=== PATIENT | male | born 1960 | race Caucasian/White ===

== ENCOUNTER 2022-04-09 09:00 | Emergency (ER) | payer OTHER, SELFPAY ==
--- NOTE | ~2022-04-09 | CT_ITS ---
EXAMINATION: CT brain wo con DATE: 04/09/2022 10:16 INDICATION: Confusion TECHNIQUE: Computed tomography (CT) of the head was performed without intravenous contrast. The mA wa s adjusted according to patient size. Iterative reconstruction technique was employed. Exam dose: 60 5.33 mGy-cm total exam DLP. COMPARISON: None FINDINGS: No intracranial mass lesion or hemorrhage or cerebrovascular accident is detected. No midli ne shifts or mass effect. No subdural or epidural hematoma. No fracture or bone destruction of the cranial vault. The mastoid air cells and included paranasal si nuses are normally developed and aerated. IMPRESSION: No significant abnormality Reviewed, dictated and finalized at [facility]. Reviewed, dictated and finalized at location [facility]. IMPRESSION: No significant abnormality
[2022-04-09 09:09] VITALS: BP 136/96; PULSE 77; RESP 20; TEMP 36.4; O2SAT 99
--- NOTE | 2022-04-09 09:23 | ED.PSYCH ---
HPI - Psych General Chief Complaint: Psychiatric Symptoms Stated Complaint: Suicidal ideation Time Seen by Provider: 04/09/22 09:08 Source: patient Mode of arrival: ambulatory Limitations: no limitations History of Present Illness HPI Narrative: Patient is a 62 y/o male who presents to the ED with c/o suicidal ideation. Patient reports a history of depression, anxiety, bipolar disorder, in addition to seizures, CVA, hypertension. Patient recently moved back into the area from [facility] and is currently living with his brother and [id number]. [id number] present at bedside. Patient reports he does not have any insurance or doctors here and has been unable to fill his prescriptions. He has reportedly been out of his psychiatric medications for the last 10 days. He states he recently broke up with his girlfriend and has been feeling increasingly hopeless and depressed. He states he can't go on like this and just wants to kill himself to make things end. He does not report a specific plan. Denies HI, AVH. Related Data Home Medications Medication Instructions Recorded Confirmed amlodipine 5 mg tablet 5 mg PO DAILY 04/09/22 apixaban 5 mg tablet (Eliquis) 5 mg PO BID 04/09/22 carvedilol 6.25 mg tablet (Coreg) 6.25 mg PO DAILY 04/09/22 04/09/22 divalproex 250 mg tablet,delayed 750 mg PO Q12H 04/09/22 release levetiracetam 1,000 mg tablet 1,000 mg PO BID 04/09/22 (Keppra) quetiapine 100 mg tablet 100 mg PO HS 04/09/22 Allergies Allergy/AdvReac Type Severity Reaction Status Date / Time Sulfa (Sulfonamide AdvReac Rash Verified 04/09/22 09:40 Antibiotics) Review of Systems Review of Systems: CONSTITUTIONAL: Denies fever. CARDIOVASCULAR: Denies chest pain. RESPIRATORY: Denies dyspnea. GASTROINTESTINAL: Denies abdominal pain, nausea, vomiting. NEUROLOGIC: Denies focal weakness. PSYCHIATRIC: Reports anxiety, depression, SI. Denies HI, AVH. All systems reviewed & are unremarkable except as noted in HPI and below PMFSH Past Medical History Medical History (Updated 04/10/22 @ 00:00 by Background Daemon) Anxiety Bipolar disorder CVA (cerebral vascular accident) Depression History of intestinal obstruction HTN (hypertension) Seizure Surgical History Surgical History (Updated 04/09/22 @ 19:58 by Nereida Morgan PA-C) History of exploratory laparotomy History of gastric bypass Social History Social History Substance use type: does not use Exam Narrative: GENERAL: Well appearing, well-nourished, non-toxic, in no acute distress. HEAD: Normocephalic, atraumatic. NECK: Supple. No adenopathy, no masses. RESPIRATORY: Airway patent, respirations nonlabored. Clear to auscultation bilaterally, no rales, rhonchi, wheezing. CARDIOVASCULAR: Regular rate and rhythm without murmurs, rubs, or gallops. Peripheral pulses 2+ and equal bilaterally. ABDOMINAL: Soft, nontender, nondistended, no hepatosplenomegaly. Normoactive BS. MUSCULOSKELETAL: Moves all extremities. Strength/ROM intact without gross deformities. SKIN: Warm, dry, normal color. No rashes. NEURO: A&O X3. Occasional dysarthria, which patient reports is chronic from previous stroke. Cranial nerves II-XII grossly intact. Steady gait. No ataxic movements. Strength 5/5 in upper and lower extremities bilaterally. Sports Writer strength equal. PSYCHIATRIC: Depressed mood, anxious, tearful. Normal interaction. Course Course Emergency Course: Patient is medically cleared to undergo psychiatric evaluation by crisis. Vital Signs Vital signs: Vital Signs Temperature 97.5 F L 04/09/22 09:09 Pulse Rate 77 04/09/22 09:09 Respiratory Rate 20 04/09/22 09:09 Blood Pressure 136/96 H 04/09/22 09:09 Pulse Oximetry 99 04/09/22 09:09 Oxygen Delivery Room Air 04/09/22 09:09 Temperature 97.5 F L 04/09/22 09:09 Pulse Rate 88 04/09/22 19:31 Respiratory Rate 16 04/09/22 19:31 Blood Pressure
--- NOTE | 2022-04-09 09:44 | PC.NURSE ---
Pt reports he has been out of his meds for greater than a week and has tried to get in touch with a pmd for refills since moving back from [place] but has been unable to reach anyone. Hx of psych treatment in 2019 at facility in [place]. Denies previous suicide attempts. States I just wish God would take me in my sleep. Denies suicide plan at present. Sister in law at bedside.
[2022-04-09 10:23] LABS: Appearance Urine Cloudy (Clear); Basophils Absolute Auto 0.1 K/mm3 (0.0-0.1); Bilirubin Urine 2+ (Negative); Blood Urine 3+ (Negative); Eosinophils Absolute Auto 0.3 K/mm3 (0-0.3); Eosinophils Percent Auto 5.8 % (0-4.4); Glucose Urine UA Negative (Negative); Immature Granulocyte Absolute 0.01 K/mm3 (0.00-0.031); Immature Granulocyte Percent A 0.2 % (0-0.5); Immature Platelet Fraction Pct 10.9 % (0.9-11.2); Ketones Urine 1+ mg/dL (Negative); Leukocyte Esterase Ur Negative LEU/UL (Negative); Lymphocytes Absolute Auto 1.73 K/mm3 (0.9-3.2); Lymphocytes Percent Auto 33.5 % (18.3-44.2); Mean Corpuscular HGB Conc 34.1 g/dl (32-36); Mean Corpuscular Hemoglobin 32.6 pg (26-34); Mean Corpuscular Volume 95.7 fl (80-100); Mean Platelet Volume 10.9 fl (7.4-10.4); Monocytes Absolute Auto 0.5 K/mm3 (0.1-0.6); Monocytes Percent Auto 9.9 % (2.6-8.5); Neutrophils Absolute Auto 2.6 K/mm3 (1.3-6.7); Neutrophils Percent Auto 49.6 % (45.5-73.1); Nitrate Urine Negative (Negative); Platelet Count Result 120 k/mm3 (150-375); Protein Urine 2+ mg/dL (Negative); Red Cell Distribution Width 14.8 % (11.5-14.5); Specific Grav Ur 1.025 (1.001-1.035); White Blood Count 5.2 K/mm3 (4.5-10.0)
[2022-04-09 10:28] LABS: Add Urine Microscopic? YES; Color Urine Dark Yellow (Yellow)
[2022-04-09 10:30] LABS: Calcium Oxalate Crystals Urine Present /hpf; Mucus Urine Moderate /lpf; RBC Urine >75 /hpf (0-2); Squamous Epithelial Cell Urine Rare /hpf (Few); WBC Urine 16-20 /hpf
[2022-04-09 10:35] LABS: INR 1.1; Prothrombin Time 13.3 Seconds (11.1-14.7)
[2022-04-09 10:36] LABS: Partial Thromboplastin Time 32.7 SECONDS (22.3-36.8)
[2022-04-09 10:40] LABS: Alanine Aminotransferase 28 U/L (6-50); Albumin Level 3.6 g/dL (3.5-5.1); Alkaline Phosphatase 76 U/L (38-126); Anion Gap 9 mmol/L (8-16); Aspartate Amino Transferase 32 U/L (17-59); Bilirubin,Total 0.7 mg/dL (0.2-1.3); Blood Urea Nitrogen 17 mg/dL (9-20); Calcium 8.3 mg/dL (8.4-10.2); Carbon Dioxide 24 mmol/L (22-30); Chloride 106 mmol/L (98-107); Estimated CRCL calculation 110 ml/min; Estimated Glomerular Filt Rate > 60; Glucose 128 mg/dL (65-110); Sodium 139 mmol/L (137-145)
[2022-04-09 10:41] LABS: Acetaminophen < 10 ug/mL (10-30); Ethanol < 10 mg/dL (<10); Salicylate < 1.0 mg/dL (2-20)
[2022-04-09 10:44] LABS: Valproic Acid 34.4 ug/mL (50-120)
[2022-04-09 11:02] LABS: SARS-CoV-2 RNA PCR Negative
[2022-04-09] MEDS: CEPHALEXIN 500 MG CAPSULE PO (11:02)
[2022-04-09] MEDS: POTASSIUM CHLORIDE 20 MEQ TABLET 40 MEQ PO (11:02)
[2022-04-09 11:11] LABS: Amphetamine Screen Urine Negative (Negative); Barbiturate Screen Urine Negative (Negative); Benzodiazepines Screen Urine Negative (Negative); Cannabinoid Screen Urine Negative (Negative); Cocaine Screen Urine Negative (Negative); Methadone Screen Urine Negative (Negative); Opiate Screen Urine Negative (Negative); Phencyclidine Screen Urine Negative (Negative)
--- NOTE | 2022-04-09 17:39 | PC.NURSE ---
MARTELL SANON [phone]
--- NOTE | 2022-04-09 19:20 | PC.NURSE ---
PT REQUESTING LOW SUGAR ENSURE, ASKING HOUSE SUP FOR ASSISTANCE.
[2022-04-09 19:31] VITALS: BP 142/80; PULSE 88; RESP 16; O2SAT 98
== END 2022-04-09 19:40 ==
PROVIDERS: Physician Assistant; Emergency Provider Emergency Medicine
DX: R45.851 Suicidal ideations (principal); F31.9 Bipolar disorder, unspecified; I10 Essential (primary) hypertension; F41.9 Anxiety disorder, unspecified; Z98.84 Bariatric surgery status; Z86.73 Personal history of transient ischemic attack (TIA), and cerebral infarction without residual deficits
CPT/HCPCS: 36415; 70450; 80053; 80164; 80307; 81001; 84443; 85025; 85055; 85610; 85730; 87086; 87088; 99285; A9270; C9803; U0003; U0005

== ENCOUNTER 2022-06-03 13:36 | Inpatient (IN) | payer OTHER, SELFPAY ==
[2022-06-03] VITALS (10 sets, daily range): BP systolic 88–125; BP diastolic 57–100; PULSE 51–67; RESP 16–20; TEMP 35.9–36.6; O2SAT 96–100; BMI 33.3
--- NOTE | ~2022-06-03 | US_ITS ---
EXAMINATION: US carotid duplex BI DATE: 06/04/2022 09:13 INDICATION: Near syncope. TECHNIQUE: Grayscale, color Doppler, and pulsed Doppler images of the cervical carotid arteries were obtained. The degree of vessel stenosis is placed in one of the following categories: normal, <50%, 5 0-69%, >=70% but less than near-occlusion, near-occlusion, or total occlusion. Note that percent sten osis relative to normal distal artery lumen diameter is indirectly measured from velocity measurement s as described by Eben, et al. Radiology 2003; 229:340-346. COMPARISON: None. FINDINGS: RIGHT: The right common carotid artery (CCA) peak systolic velocity (PSV) is 66 cm/s. The right internal car otid artery (ICA) PSV is 80 cm/s. The right ICA end-diastolic velocity (EDV) is 30 cm/s. The right IC A/CCA PSV ratio is 1.2. Grayscale and color Doppler images yield an estimate of <50% diameter reducti on from plaque in the ICA. There is antegrade flow in the right vertebral artery. LEFT: The left CCA PSV is 81 cm/s. The left ICA PSV is 87 cm/s. The left ICA EDV is 32 cm/s. The left ICA/C CA PSV ratio is 1.1. Grayscale and color Doppler images yield an estimate of <50% diameter reduction from plaque in the ICA. There is antegrade flow in the left vertebral artery. IMPRESSION: 1. <50% stenosis in the right internal carotid artery. 2. <50% stenosis in the left internal carotid artery. Reviewed, dictated and finalized at location [facility].
--- NOTE | ~2022-06-03 | CT_ITS ---
EXAMINATION: CT brain wo con DATE: 06/03/2022 15:47 INDICATION: Dizziness. TECHNIQUE: Computed tomography (CT) of the head was performed without intravenous contrast. The mA wa s adjusted according to patient size. Iterative reconstruction technique was employed. The dose-lengt h product was 605.33 mGy-cm. COMPARISON: Head CT 04/09/2022 FINDINGS: There is an old infarct in right temporal parietal region. There is no intracranial hemorrh age, acute infarction, or abnormal intracranial mass lesion. The ventricles are normal in size. The m astoid air cells are normal. There is mild mucosal thickening in the ethmoid sinuses. The orbits are normal. IMPRESSION: 1. Old infarct in right temporal parietal region. Reviewed, dictated and finalized at location [facility].
--- NOTE | ~2022-06-03 | MR_ITS ---
EXAMINATION: MR brain/brain stem wo/w con DATE: 06/04/2022 07:57 INDICATION: Near syncope. TECHNIQUE: Magnetic resonance imaging (MRI) of the brain and brainstem was performed without and with 20 mL MultiHance intravenous contrast. COMPARISON: Head CT 06/03/2022 FINDINGS: There is encephalomalacia in right temporal parietal region with old blood products and con trast enhancement. There is no acute ischemic infarct. The ventricles are normal in size. There is mi ld mucosal thickening in the ethmoid sinuses. IMPRESSION: 1. Encephalomalacia in right temporal parietal region with old blood products. Contrast enhancement i n this area may be secondary to subacute age of the insult or arteriovenous malformation. Reviewed, dictated and finalized at location A. IMPRESSION: 1. Encephalomalacia in right temporal parietal region with old blood products. Contrast enhancement in this area may be secondary to subacute age of the insul t or arteriovenous malformation.
--- NOTE | ~2022-06-03 | XR_ITS ---
EXAMINATION: XR chest 2V DATE: 06/03/2022 13:49 INDICATION: Dizziness. Stroke. TECHNIQUE: AP and lateral views of the chest were obtained. COMPARISON: None FINDINGS: The lungs are clear with no focal airspace opacities, pulmonary edema, pleural effusion or pneumothor ax. The cardiomediastinal silhouette is normal. There are bridging osteophytes at multiple levels in the spine, consistent with diffuse idiopathic skeletal hyperostosis (DISH). Cholecystectomy clips in right upper quadrant. Partially visualized plate and screw fixation along the proximal left humerus. IMPRESSION: 1. No acute cardiopulmonary disease. Reviewed, dictated and finalized at location A.
--- NOTE | 2022-06-03 13:37 | ECG_ITS ---
Measurements Intervals [place] Rate: 60 P: 53 LA: 191 QRS: 8 QRSD: 94 T: 37 QT: 392 QTc: 393 Interpretive Statements SINUS RHYTHM RSR' IN V1 OR V2, CONSIDER RIGHT VENTRICULAR HYPERTROPHY OR RIGHT VCD BASELINE ARTIFACT- I, II, III, AVR, AVL, AVF, V1-V2 BORDERLINE ECG NO PREVIOUS ECG AVAILABLE FOR COMPARISON Electronically Signed On 06-03-2022 16:42:54 CDT by Sudheer Cid D.O.
--- NOTE | 2022-06-03 13:46 | PC.NURSE ---
Pt is in xray,
[2022-06-03 14:17] LABS: Basophils Absolute Auto 0.1 K/mm3 (0.0-0.1); Eosinophils Absolute Auto 0.3 K/mm3 (0-0.3); Eosinophils Percent Auto 4.9 % (0-4.4); Hematocrit 40.9 % (42.0-52.0); Hemoglobin 13.9 g/dL (14.0-18.0); Immature Granulocyte Absolute 0.02 K/mm3 (0.00-0.031); Immature Granulocyte Percent A 0.4 % (0-0.5); Immature Platelet Fraction Pct 8.9 % (0.9-11.2); Lymphocytes Absolute Auto 2.13 K/mm3 (0.9-3.2); Lymphocytes Percent Auto 41.4 % (18.3-44.2); Mean Corpuscular Hemoglobin 34.6 pg (26-34); Mean Corpuscular Volume 101.7 fl (80-100); Mean Platelet Volume 11.8 fl (7.4-10.4); Monocytes Absolute Auto 0.6 K/mm3 (0.1-0.6); Neutrophils Absolute Auto 2.1 K/mm3 (1.3-6.7); Neutrophils Percent Auto 40.3 % (45.5-73.1); Platelet Count Result 89 k/mm3 (150-375); Red Blood Count 4.02 M/mm3 (4.6-6.20); White Blood Count 5.2 K/mm3 (4.5-10.0)
[2022-06-03 14:26] LABS: Alanine Aminotransferase 53 U/L (6-50); Albumin Level 3.3 g/dL (3.5-5.1); Alkaline Phosphatase 71 U/L (38-126); Anion Gap 9 mmol/L (8-16); Aspartate Amino Transferase 60 U/L (17-59); Blood Urea Nitrogen 25 mg/dL (9-20); Calcium 8.4 mg/dL (8.4-10.2); Carbon Dioxide 26 mmol/L (22-30); Chloride 103 mmol/L (98-107); Estimated Glomerular Filt Rate > 60; Glucose 96 mg/dL (65-110); Potassium 3.6 mmol/L (3.4-5.0); Sodium 138 mmol/L (137-145)
[2022-06-03 14:33] LABS: Ovalocytes 1+ (NORMAL); Platelet Estimate Decreased (Adequate)
[2022-06-03 14:41] LABS: Schistocytes None Seen (NORMAL)
--- NOTE | 2022-06-03 15:14 | ED.GENADULT ---
HPI - General Adult General Chief complaint: Weakness Stated complaint: near syncope, hypotensive/bradycardic Time Seen by Provider: 06/03/22 15:13 Source: patient and EMS Mode of arrival: EMS Limitations: no limitations History of Present Illness HPI narrative: Patient is 62 years old white female came to the emergency room by ambulance because of near syncope and syncope. Patient reports feeling like going to pass out since bale sewer at least 4 times a day. Patient was in a friend in the grocery store and was in a sitting position and suddenly passed out, unresponsive, sweating and clammy, lasted for 1 minute, his eyes was rolled up and was staring. Patient reports having similar symptoms many times in the past, last year without a specific diagnosis. History of stroke 5 months ago. Patient lives alone, disabled, secondary to extreme depression Related Data Home Medications Medication Instructions Recorded Confirmed amlodipine 5 mg tablet 5 mg PO DAILY 04/09/22 apixaban 5 mg tablet (Eliquis) 5 mg PO BID 04/09/22 carvedilol 6.25 mg tablet (Coreg) 6.25 mg PO DAILY 04/09/22 04/09/22 divalproex 250 mg tablet,delayed 750 mg PO Q12H 04/09/22 release levetiracetam 1,000 mg tablet 1,000 mg PO BID 04/09/22 (Keppra) quetiapine 100 mg tablet 100 mg PO HS 04/09/22 Allergies Allergy/AdvReac Type Severity Reaction Status Date / Time Sulfa (Sulfonamide AdvReac Rash Verified 04/09/22 09:40 Antibiotics) Review of Systems Review of Systems: All systems reviewed & are unremarkable except as noted in HPI and below PMFSH Past Medical History Medical History Anxiety Bipolar disorder CVA (cerebral vascular accident) Depression History of intestinal obstruction HTN (hypertension) Seizure Surgical History Surgical History History of exploratory laparotomy History of gastric bypass Social History Social History Substance use type: does not use Exam Narrative: General appearance: Well-developed, well-nourished Skin: Normal color Head: Normocephalic, nontraumatic Eyes: Clear conjunctiva ENT: Oropharynx normal, ears normal, nose normal Neck: Supple, nontender Chest and respiratory: Airway patent, no respiratory distress, no accessory muscle use Heart: Regular rate/rhythm Abdomen: Soft, nontender, no organomegaly, quiet bowel sounds Vascular: Normal peripheral pulses, normal capillary refill. Musculoskeletal: Normal range of motion, nontender back Neurologic: Alert and oriented ?3, GYMNASIUM TEACHER is normal as tested, no gross motor deficit Course Course Emergency Course: Patient work-up did not show any significant finding to explain his symptoms. Seizure is my concern. Patient had history of CVA 5 months ago. Also his symptoms could be cardiac related or extreme depression. Patient reported having similar symptoms numerous of time in the past without specific diagnosis. History of bipolar, anxiety and depression And seizure Consultations Consultation #1: Dr. Wills Date: 06/03/22 Time: 16:26 Medical Decision Making Differential Diagnosis Differential Diagnosis: Depression related symptoms, seizure, cardiac arrhythmia Lab Data Result diagrams: 06/03/22 14:10 06/03/22 14:10 Labs: Lab Results 06/03/22 06/03/22 Range/Units 14:10 14:10 WBC 5.2 (4.5-10.0) K/mm3 RBC 4.02 L (4.6-6.20) M/mm3 Hgb 13.9 L (14.0-18.0) g/dL Hct 40.9 L (42.0-52.0) % MCV 101.7 H (80-100) fl MCH 34.6 H (26-34) pg MCHC 34.0 (32-3
--- NOTE | 2022-06-03 15:16 | PC.NURSE ---
1500 Assumed pt care from SHILO Nicholas
--- NOTE | 2022-06-03 17:03 | PM.IMHP ---
H&P: HPI History of Present Illness Date/Time: 06/03/22 17:03 Chief Complaint: Weakness Narrative: This is a 62-year-old male patient has a past medical history of happened of CVA. The patient has recovered well from his CVA without any residual. Occasionally he does have difficulty with word searching. The patient came to the ER tonight because of the near syncopal episode. The patient her stated like he was going to pass out since early this morning least 4 times a day. The patient was with a friend in the grocery store and was in a sitting position when he felt like he was going to pass out. The patient still had his eyes open but was unresponsive sweaty and clammy. This lasted for about 1 minute. The patient's eyes were noted to roll up and he was staring. He has had similar episodes in the past. He has not had any diagnosis of why he is having the syncopal episodes. His H&H is 13.9 and 40.9. He has 21 the 50 RBCs. Urine bilirubin is 1+. Urine ketones 1+. The patient was given Keppra IV for possibility of a seizure. Neurology has been consulted. Head CT was read as old infarction and right temporal parietal region. Chest x-ray was read as no acute cardiopulmonary disease. Patient is being admitted to observation status on the date of service of 06/03/2022. Review of Systems Review of Systems: All systems reviewed & are unremarkable except as noted in HPI and below Constitutional: Constitutional: Reports as per HPI and Reports no additional constitutional complaints Eyes: Eyes: Reports as per HPI and Reports no additional eye complaints ENT: Reports system reviewed and no additional complaints, except as documented and Reports Normal hearing present Cardiovascular: Cardiovascular: Reports no additional cardiovascular complaints Respiratory: Respiratory: Reports no additional respiratory complaints and Reports no additional respiratory complaints Gastrointestinal: Gastrointestinal: Reports as per HPI and Reports no additional gastrointestinal complaints Musculoskeletal: Musculoskeletal: Reports no additional musculoskeletal complaints Integumentary/Breasts: Skin/Breast: Reports system reviewed and no additional complaints, except as docu and Reports as per HPI Neurologic: Reports system reviewed and no additional complaints, except as documented, Reports as per HPI and Reports Normal hearing present Psychiatric: Psychiatric: Reports no additional psychiatric complaints and Reports as per HPI Endocrine: Endocrine: Reports no additional endocrine complaints Hematologic/Lymphatic: Hematologic/Lymphatic: Reports no additional hematologic/lymphatic complaints Allergic/Immunologic: Allergic/Immunologic: Reports no additional allergic/immunologic complaints [facility] Past Medical History Medical History (Updated 06/03/22 @ 20:19 by Shari Sanchez NP) Anxiety CVA (cerebral vascular accident) Depression History of intestinal obstruction HTN (hypertension) Hyperlipidemia Seizure Surgical History Surgical History H/O shoulder surgery History of exploratory laparotomy History of gastric bypass Family History Family History Father Aneurysm Mother Cerebrovascular accident Social History Social History (Updated 06/03/22 @ 20:06 by Shari Sanchez NP) Social History: He is . He lives alone . He has a son. He is retired from being a Intake Coordinator and director. He is a former smoker. He denies any alcohol marijuana or illicit drugs. He has no power boatswains mate. Code status full code Smoking packs per day: 0.5 Smoking cigarettes per day: 10.0 Years smoked: 10 Smoking pack-years: 5.00 Smoking status: Former smoker Tobacco type: cigarettes Alcohol intake: former Substance use: never Substance use type: does not use Spiritual care concerns: No Meds Home Medication
[2022-06-03] MEDS: levETIRAcetam 1000MG/NACL100ML 1,000 MG/100 ML BAG 400 MG IVPB (17:04)
[2022-06-03 17:07] LABS: Appearance Urine Slightly Cloudy (Clear); Bilirubin Urine 1+ (Negative); Blood Urine Negative (Negative); Color Urine Amber (Yellow); Glucose Urine UA Negative (Negative); Ketones Urine 1+ mg/dL (Negative); Leukocyte Esterase Ur Negative LEU/UL (Negative); Nitrate Urine Negative (Negative); Protein Urine 2+ mg/dL (Negative); pH Urine 5.5 (5.0-9.0)
[2022-06-03 17:10] LABS: Bacteria Urine Trace /hpf; Calcium Oxalate Crystals Urine Present /hpf; Mucus Urine Few /lpf; RBC Urine 21-50 /hpf (0-2); Squamous Epithelial Cell Urine Occasional /hpf (Few)
[2022-06-03 17:11] LABS: Add Urine Microscopic? YES
--- NOTE | 2022-06-03 18:57 | ADMGEN ---
This patient, Gavin Arboleda, was admitted to [facility] Surg Room 718-20 [id number]. Patient/family oriented to hospital policies and general routines including ID bracelet, bed and alarms, visiting hours, pain management, procedures, bathroom and other care routines, personal items, smoking policy, room service/diet, and visiting hours. Information on how to activate the Rapid Response Team has been discussed. Patient/Family are encouraged to report perceived risks to care and to ask questions if they do not understand what they are told or what they should do.
[2022-06-03] MEDS: QUEtiapine FUMARATE 100 MG TABLET PO (21:41)
[2022-06-03] MEDS: DIVALPROEX SODIUM DR 250 MG TABEC 750 MG PO (21:41)
[2022-06-03] MEDS: ATORVASTATIN 20 MG TABLET PO (21:41)
[2022-06-03] MEDS: SODIUM CHLORIDE 0.9% IV 1,000 ML 999 ML IV CONT (22:07)
--- NOTE | 2022-06-03 22:27 | PC.NURSE ---
notified that pt HR was between 47-52 and blood pressure was 88/61, 1L fluid bolus ordered and hung. Will recheck bp after bolus is complete
[2022-06-04] VITALS (12 sets, daily range): BP systolic 76–124; BP diastolic 59–84; PULSE 47–66; RESP 6–16; TEMP 35.8–35.9; O2SAT 98–100
--- NOTE | 2022-06-04 | ECHO_ITS ---
Patient Info Name: Gavin Arboleda Age: 62 years : 1960 Gender: Male Ht: 69 in Wt: 225 lbs BSA: 2.26 m2 HR: 50 bpm BP: 107 / 70 mmHg Technical Quality: Poor Exam Date: 06/04/2022 10:51 AM Exam Location: [facility] Patient Status: Inpatient Admit Date: 06/03/2022 Staff Ordering Physician: Shari Sanchez NP Branch Operations Manager: Elaine Nava RDCS Attending Provider: Florencio Atkins MD Referring Physician: Laura VAZQUEZ; Exam Type: CA echo dop color flow w con Study Info Indications R55 - Syncope and collapse Complete two-dimensional, color flow and Doppler transthoracic echocardiogram is performed with contrast to opacify the left ventricle and to improve the deliniation of the left ventricle endocardial borders. Contrast/Agitated Saline Contrast/Ag. Saline: Definity Amount: 4.00 ml Administered By: Elaine Nava [facility] Reason for Poor Study: patient body habitus Summary 1. Technically suboptimal study due to poor sonographic images. 2. Definity contrast administered improved wall motion interpretation. 3. Left ventricular chamber dimension is normal. 4. Left ventricular systolic function is normal, estimated at 60-65%. 5. There is mildly increased left ventricular wall thickness. 6. The left ventricular diastolic function is normal. 7. E/e' 7 is not elevated. 8. There is mild aortic valve sclerosis. Left Ventricle Definity contrast administered improved wall motion interpretation. E/e' 7 is not elevated. Technically suboptimal study due to poor sonographic images. Left ventricular chamber dimension is normal. Left ventricular systolic function is normal, estimated at 60-65%. There is mildly increased left ventricular wall thickness. The left ventricular diastolic function is normal. Right Ventricle Right ventricular systolic function is normal and with normal TAPSE 2.3 cm. Right ventricular chamber dimension is normal. Left Atria Left atrial chamber dimension is normal. Right Atria Right atrial chamber dimension is normal. Aortic Valve The aortic valve is trileaflet. There is mild aortic valve sclerosis. There is no aortic valve stenosis. There is no aortic valve regurgitation. Pulmonic Valve There is no pulmonic regurgitation. Mitral Valve There is no mitral valve stenosis. There is no mitral valve regurgitation. Tricuspid Valve There is no tricuspid valve regurgitation. Pericardium/Pleural There is no pericardial effusion. Inferior Vena Cava Normal inferior vena cava with >50% collapse upon inspiration consistent with normal right atrial pressure, 5 mmHg. Aorta The aortic root size at the sinus of Valsalva is normal. Left Ventricular Outflow Tract Name Value Normal LVOT 2D LVOT Diameter 2.28 cm LVOT Doppler LVOT Peak Gradient 3 mmHg LVOT Mean Gradient 2 mmHg LVOT VTI 19.45 cm LVOT VTI/AV VTI Ratio 1.05 LVOT Stroke Volume 79.46 ml LVOT
[2022-06-04 06:03] LABS: Basophils Percent Auto 0.7 % (0.2-1.2); Eosinophils Absolute Auto 0.2 K/mm3 (0-0.3); Eosinophils Percent Auto 4.7 % (0-4.4); Hematocrit 38.8 % (42.0-52.0); Hemoglobin 13.2 g/dL (14.0-18.0); Immature Platelet Fraction Pct 9.8 % (0.9-11.2); Lymphocytes Absolute Auto 2.53 K/mm3 (0.9-3.2); Lymphocytes Percent Auto 59.7 % (18.3-44.2); Mean Corpuscular Hemoglobin 34.6 pg (26-34); Mean Corpuscular Volume 101.8 fl (80-100); Mean Platelet Volume 12.1 fl (7.4-10.4); Monocytes Absolute Auto 0.4 K/mm3 (0.1-0.6); Monocytes Percent Auto 9.4 % (2.6-8.5); Neutrophils Absolute Auto 1.1 K/mm3 (1.3-6.7); Neutrophils Percent Auto 25.5 % (45.5-73.1); Platelet Count Result 84 k/mm3 (150-375); Red Blood Count 3.81 M/mm3 (4.6-6.20); Red Cell Distribution Width 14.2 % (11.5-14.5); White Blood Count 4.2 K/mm3 (4.5-10.0)
[2022-06-04 06:08] LABS: Lactic Acid Reflex 0.7 mmol/L (0.7-2.0)
[2022-06-04 06:16] LABS: Alanine Aminotransferase 48 U/L (6-50); Albumin Level 2.8 g/dL (3.5-5.1); Alkaline Phosphatase 62 U/L (38-126); Anion Gap 7 mmol/L (8-16); Aspartate Amino Transferase 47 U/L (17-59); Bilirubin,Total 0.8 mg/dL (0.2-1.3); Blood Urea Nitrogen 23 mg/dL (9-20); Calcium 8.2 mg/dL (8.4-10.2); Carbon Dioxide 25 mmol/L (22-30); Chloride 108 mmol/L (98-107); Estimated CRCL calculation 90 ml/min; Estimated Glomerular Filt Rate > 60; Glucose 82 mg/dL (65-110); Lactate Dehydrogenase 100 U/L (120-246); Magnesium 1.6 mg/dL (1.6-2.3); Potassium 3.9 mmol/L (3.4-5.0); Sodium 140 mmol/L (137-145)
[2022-06-04 06:53] LABS: Amphetamine Screen Urine Negative (Negative); Barbiturate Screen Urine Negative (Negative); Benzodiazepines Screen Urine Negative (Negative); Cannabinoid Screen Urine Negative (Negative); Cocaine Screen Urine Negative (Negative); Methadone Screen Urine Negative (Negative); Opiate Screen Urine Negative (Negative); Phencyclidine Screen Urine Negative (Negative)
[2022-06-04] MEDS: APIXABAN 5 MG TABLET PO ×2 (08:45→20:57)
[2022-06-04] MEDS: DIVALPROEX SODIUM DR 250 MG TABEC 750 MG PO ×2 (08:45→20:57)
[2022-06-04] MEDS: levETIRAcetam 500 MG TABLET 1000 MG PO (08:45)
--- NOTE | 2022-06-04 10:42 | PM.IMPN ---
Progress Note: A&P Assessment and Plan (1) Syncope and collapse: Code(s): R55 - Syncope and collapse Status: Acute Assessment and Plan: Concern for possible seizure, Neurology consult pending, follow-up echo and carotid Dopplers as well as EEG Consult cardiology per Neurology recommendations (2) Seizure-like activity: Code(s): R56.9 - Unspecified convulsions Status: Acute Assessment and Plan: Continue Depakote, hold off on further antiepileptics (3) Major depression: Code(s): F32.9 - Major depressive disorder, single episode, unspecified Status: Acute Assessment and Plan: Possible history of bipolar, continue Seroquel (4) CVA (cerebral vascular accident): Code(s): I63.9 - Cerebral infarction, unspecified Status: Acute Assessment and Plan: Continue Eliquis (5) HTN (hypertension): Code(s): I10 - Essential (primary) hypertension Status: Acute Assessment and Plan: Hold Coreg for now, low blood pressure, monitor (6) Anxiety: Code(s): F41.9 - Anxiety disorder, unspecified Status: Acute Assessment and Plan: Stable (7) Hyperlipidemia: Code(s): E78.5 - Hyperlipidemia, unspecified Status: Acute Assessment and Plan: Continue with atorvastatin Plan DVT prophylaxis with Eliquis GI prophylaxis not indicated Code status full code Subjective Date/time seen: 06/04/22 10:42 Interval history: No seizure activity. No lightheadedness or dizziness. No overnight events noted. No chest pain or shortness of breath. No nausea, vomiting or diarrhea. No fevers or chills. Review of Systems Review of Systems: 12 point review of systems was assessed and was negative except as noted in the HPI Exam Narrative: General: No acute distress, alert and oriented per baseline HEENT: Atraumatic, normocephalic, mucous membranes moist CV: Regular rate and rhythm, S1, S2 Lungs: Clear to auscultation bilaterally, no rales or crackles noted, no wheezes, good air entry Abdomen: Soft, nontender, nondistended Extremities: Normal to inspection Skin: No rashes noted, no lesions or wounds seen Psych: Euthymic, normal affect Objective Data Vital Signs Vital Signs: Vital Signs - 24 hr 06/03/22 13:35 06/03/22 15:01 06/03/22 16:57 Temperature 97.0 F L 97.9 F Pulse Rate 59 L 55 L 54 L Respiratory Rate 18 20 17 Blood Pressure 125/100 H 99/62 L 108/65 Pulse Oximetry 99 96 98 Oxygen Delivery Room Air 06/03/22 17:19 06/03/22 18:47 06/03/22 18:41 Temperature 97.5 F L Pulse Rate 56 L 67 Respiratory Rate 16 Blood Pressure 117/74 110/70 Pulse Oximetry 99 98 98 Oxygen Delivery Room Air 06/03/22 21:57 06/03/22 20:00 06/03/22 20:00 Temperature 96.7 F L Pulse Rate 51 L 54 L Respiratory Rate 16 Blood Pressure 88/61 L Pulse Oximetry 100 Oxygen Delivery Room Air 06/03/22 23:11 06/04/22 00:00 06/04/22 03:12 Temperature Pulse Rate 54 L 51 L 56 L Respiratory Rate Blood Pressure 103/57 L Pulse Oximetry Oxygen Delivery 06/04/22 06:00 06/04/22 09:00 06/03/22 18:44 Temperature 96.6 F L 97.5 F L Pulse Rate 49 L 67 Respiratory Rate 16 16 Blood Pressure 107/70 110/70 Pulse Oximetry 98 98 Oxygen Delivery Room Air Intake/Output Intake/Output: Intake & Output 06/01/22 06/02/22 06/03/22 06/04/22 23:59 23:59 23:59 23:59 Intake Total 1340 580 Output Total 300 Balance 1340 280 Meds/Results Medications: Active Medications Generic Name Dose Route Start Last Admin Trade Name Freq PRN Reason Stop Dose Admin Acetaminophen 650 mg 06/03/22 16:35 Acetaminophen 325 Mg Tablet PO Q4H PRN Mild Pain (1-3) or Fever Apixaban 5 mg 06/04/22 09:00 06/04/22 08:45 Apixaban 5 Mg Tablet PO 5 mg Q12HR SUNIL Administration Atorvastatin Calcium 20 mg 06/03/22 21:00 06/03/22 21:41 Atorvastatin 20 Mg Tablet PO 20
--- NOTE | 2022-06-04 11:34 | WPDNEURCNPN ---
Assessment and Plan Assessment and plan (1) Syncope and collapse: Code(s): R55 - Syncope and collapse Status: Acute (2) Seizure-like activity: Code(s): R56.9 - Unspecified convulsions Status: Acute (3) CVA (cerebral vascular accident): Code(s): I63.9 - Cerebral infarction, unspecified Status: Acute Plan Mr. Arboleda is a 62 year old male with a history of prior stroke presenting with episodes of decreased responsiveness. Unclear if these episodes are seizures, but patient is at higher risk given prior stroke. Yesterday's episode occurred while sitting down so less likely to be orthostatic intolerance. Patient is on Eliquis for stroke prevention, but no documented history of atrial fibrillation or other cardiogenic cause for stroke. - Agree with routine EEG, echocardiogram - I suspect he had a cardioembolic etiology to his stroke given he is on Eliquis; consider Cardiology consult for syncopal events - Unclear why patient was on Keppra prior to admission; if cardiac evaluation is unremarkable, reasonable to continue maintenance Keppra Consult date: 06/04/22 Time Seen: 11:34 Reason for consult: Syncope vs seizure-like activity HPI: Gaivn Arboleda is a 62 year old male with a history of mood disorder and R temporoparietal stroke who presented due to episodes of decreased responsiveness. Patient has speech deficits due to prior stroke, but was able to give some history. He describes feeling dopey yesterday, with decreased responsiveness. He reports having a similar episode in April. He had similar episodes before his stroke too. He does report feeling lightheaded with the episodes. He denies any chest pain, palpitations, shortness of breath. He has not had any abnormal movements with the episodes. Per chart review, patient was sitting down during the episode that occured yesterday. It was witnessed by a friend. He was staring off and was unresponsive, episode lasting 1 minute. He was evaluated in ED where he had a CT head which showed encephalomalacia of the R temporoparietal region. UA was negative. He received Keppra load and was started on 1g BID. MRI done this morning which did not show any new stroke. Patient is on Eliquis for stroke prevention. Asked if patient had atrial fibrillation or other cardiac issues that he was diagnosed with during his hospitalization for the stroke (in [place]), but he is not sure. At an ED visit in April 2022 it is documented that he is on Keppra 1g BID. Unclear when or why Keppra was started. Review of Systems Constitutional: Constitutional: Reports lethargy Eyes: Eyes: Reports no additional eye complaints ENT: Reports system reviewed and no additional complaints, except as documented Cardiovascular: Cardiovascular: Reports as per HPI and Reports lightheadedness Respiratory: Respiratory: Reports no additional respiratory complaints Gastrointestinal: Gastrointestinal: Reports no additional gastrointestinal complaints Genitourinary: Genitourinary: Reports no additional male genitourinary complaints Musculoskeletal: Musculoskeletal: Reports arthralgias (L shoulder pain) Integumentary/Breasts: Skin/Breast: Reports system reviewed and no additional complaints, except as docu Neurologic: Reports as per HPI Psychiatric: Psychiatric: Reports anxiety and Reports depression PMFSH Past Medical History Medical History Anxiety CVA (cerebral vascular accident) Depression History of intestinal obstruction HTN (hypertension) Hyperlipidemia Seizure Surgical History Surgical History H/O shoulder surgery History of exploratory laparotomy History of gastric bypass Family History Family History Father Aneurysm Mother Cerebrovascular accident Social History Social History (Reviewed 06/04/22 @ 11:4
[2022-06-04] MEDS: QUEtiapine FUMARATE 100 MG TABLET PO (20:57)
[2022-06-04] MEDS: ATORVASTATIN 20 MG TABLET PO (20:57)
[2022-06-04] MEDS: ACETAMINOPHEN 325 MG TABLET 650 MG PO (20:59)
[2022-06-05] VITALS (11 sets, daily range): BP systolic 89–173; BP diastolic 59–103; PULSE 48–76; RESP 16–22; TEMP 36.1–36.2; O2SAT 97–100
[2022-06-05] MEDS: APIXABAN 5 MG TABLET PO ×2 (07:59→21:09)
[2022-06-05] MEDS: DIVALPROEX SODIUM DR 250 MG TABEC 750 MG PO ×2 (07:59→21:09)
--- NOTE | 2022-06-05 09:37 | PM.IMPN ---
Progress Note: A&P Assessment and Plan (1) Syncope and collapse: Code(s): R55 - Syncope and collapse Status: Acute Assessment and Plan: Concern for possible seizure, Neurology consult pending, follow-up echo and carotid Dopplers as well as EEG Consult cardiology per Neurology recommendations MRI without acute infarct, but encephalomalacia Echo pending (2) Seizure-like activity: Code(s): R56.9 - Unspecified convulsions Status: Acute Assessment and Plan: Continue Depakote, hold off on further antiepileptics, defer to neuro for further management (3) Major depression: Code(s): F32.9 - Major depressive disorder, single episode, unspecified Status: Acute Assessment and Plan: Possible history of bipolar, continue Seroquel (4) CVA (cerebral vascular accident): Code(s): I63.9 - Cerebral infarction, unspecified Status: Acute Assessment and Plan: Continue Eliquis (5) HTN (hypertension): Code(s): I10 - Essential (primary) hypertension Status: Acute Assessment and Plan: Hold Coreg for now, low blood pressure, monitor (6) Anxiety: Code(s): F41.9 - Anxiety disorder, unspecified Status: Acute Assessment and Plan: Stable (7) Hyperlipidemia: Code(s): E78.5 - Hyperlipidemia, unspecified Status: Acute Assessment and Plan: Continue with atorvastatin Plan DVT prophylaxis with Eliquis GI prophylaxis not indicated Code status full code Subjective Date/time seen: 06/05/22 09:37 Interval history: No seizure activity noted overnight. No overnight events noted. No chest pain or shortness of breath. No nausea, vomiting or diarrhea. No fevers or chills. Review of Systems Review of Systems: 12 point review of systems was assessed and was negative except as noted in the HPI Exam Narrative: General: No acute distress, alert and oriented per baseline HEENT: Atraumatic, normocephalic, mucous membranes moist CV: Regular rate and rhythm, S1, S2 Lungs: Clear to auscultation bilaterally, no rales or crackles noted, no wheezes, good air entry Abdomen: Soft, nontender, nondistended Extremities: Normal to inspection Skin: No rashes noted, no lesions or wounds seen Psych: Euthymic, normal affect Neuro: Cranial nerves 2-12 grossly intact, strength +5/5 upper and lower extremities bilaterally Objective Data Vital Signs Vital Signs: Vital Signs - 24 hr 06/04/22 14:00 06/04/22 15:38 06/04/22 15:38 Temperature Pulse Rate 51 L Respiratory Rate 14 Blood Pressure 97/60 L 76/59 L 93/75 L Pulse Oximetry 100 Oxygen Delivery 06/04/22 15:54 06/04/22 16:00 06/04/22 20:00 Temperature 96.4 F L Pulse Rate 56 L 48 L Respiratory Rate 16 Blood Pressure 124/78 108/67 Pulse Oximetry 99 Oxygen Delivery 06/04/22 20:05 06/04/22 20:10 06/04/22 20:00 Temperature Pulse Rate 50 L 66 52 L Respiratory Rate 16 6 L Blood Pressure 107/84 111/76 Pulse Oximetry 100 98 Oxygen Delivery 06/04/22 20:00 06/04/22 22:00 06/04/22 23:01 Temperature 96.5 F L Pulse Rate 48 L 47 L Respiratory Rate 16 Blood Pressure 108/67 Pulse Oximetry 99 Oxygen Delivery Room Air 06/05/22 04:00 06/05/22 05:08 06/05/22 08:00 Temperature 96.9 F L Pulse Rate 53 L 50 L Respiratory Rate 16 Blood Pressure 103/67 Pulse Oximetry 99 Oxygen Delivery Room Air Intake/Output Intake/Output: Intake & Output 06/02/22 06/03/22 06/04/22 06/05/22 23:59 23:59 23:59 23:59 Intake Total 1340 1460 240 Output Total 300 Balance 1340 1160 240 Meds/Results Medications: Active Medications Generic Name Dose Route Start Last Admin Trade Name Marlon PRN Reason Stop Dose Admin Acetaminophen 650 mg 06/03/22 16:35 06/04/22 20:59 Acetaminophen 325 Mg Tablet PO 650 mg Q4H PRN Administration Mild Pain (1-3) or Fever Apixaban 5 mg 06/04/22 09:00 10
--- NOTE | 2022-06-05 10:33 | PM.CNCAR ---
Assessment and Plan Assessment and plan (1) CVA (cerebral vascular accident): Code(s): I63.9 - Cerebral infarction, unspecified Status: Acute (2) Near syncope: Code(s): R55 - Syncope and collapse Status: Acute Plan Would obtain records from his hospitalization for his CVA from [place] to see why Eliquis was started. TTE ordered and pending. Will follow up on results. Continue to monitor on tele. History of Present Illness History of Present Illness Consult date/time: 06/05/22 10:33 Requesting physician: Jordyn Cali DO Consult reason: Other (Near syncope) Reason For Visit: Synope/Seizure Like Activity/Major Depression Narrative: Patient is a 62-year-old male with a history of right temporoparietal stroke who presented with near syncopal episodes. Patient reports that he suffered a stroke in [place] this past December. Since then, he has been feeling fatigued. Was started on Eliquis at that time, but for unclear reasons. No history of AFIB or other known cardiac issues. Patient reports that yesterday he was sitting down, and started feeling lightheaded, and then felt like his face was frozen, and his friend said he was staring off. Patient thought he was gonna pass out, but did not. Has not had any syncopal episodes. States he feels drowsy most of the day. Head CT here showed old infarct in right temporal parietal region. Brain MRI showed encephalomalacia in right temporal parietal region with old blood products. EKG shows sinus bradycardia. Telemetry shows sinus bradycardia / sinus rhythm. Review of Systems Review of Systems: All systems reviewed & are unremarkable except as noted in HPI and below (HPI) [facility] Past Medical History Medical History Anxiety CVA (cerebral vascular accident) Depression History of intestinal obstruction HTN (hypertension) Hyperlipidemia Seizure Surgical History Surgical History H/O shoulder surgery History of exploratory laparotomy History of gastric bypass Family History Family History Father Aneurysm Mother Cerebrovascular accident Social History Social History Social History: He is . He lives alone . He has a son. 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 He is a former smoker. He denies any alcohol marijuana or illicit drugs. He has no power collections attorney. Code status full code Smoking packs per day: 0.5 Smoking cigarettes per day: 10.0 Years smoked: 10 Smoking pack-years: 5.00 Smoking status: Former smoker Tobacco type: cigarettes Alcohol intake: former Substance use: never Substance use type: does not use Spiritual care concerns: No Meds Home Medications and Allergies Home Medications Medication Instructions Recorded Confirmed Type amlodipine 5 mg tablet 5 mg PO DAILY 04/09/22 06/03/22 History apixaban 5 mg tablet (Eliquis) 5 mg PO BID 04/09/22 06/03/22 History carvedilol 6.25 mg tablet (Coreg) 6.25 mg PO DAILY 04/09/22 06/03/22 History divalproex 250 mg tablet,delayed 750 mg PO Q12H 04/09/22 06/03/22 History release levetiracetam 1,000 mg tablet 1,000 mg PO BID 04/09/22 06/03/22 History (Keppra) quetiapine 100 mg tablet 100 mg PO HS 04/09/22 06/03/22 History Klonopin 0.5 mg PO DAILY 06/03/22 06/04/22 History atorvastatin 20 mg tablet 20 mg PO HS 06/03/22 06/03/22 History Allergies Allergy/AdvReac Type Severity Reaction Status Date / Time Sulfa (Sulfonamide AdvReac Rash Verified 06/03/22 18:26 Antibiotics) Vital Signs Vital Signs - 24 hr 06/04/22 14:00 06/04/22 15:38 06/04/22 15:38 Temperature Pulse Rate 51 L Respiratory Rate 14 Blood Pressure 97/60 L 76/59 L 93/75 L Pulse Oximetry 100 Oxygen Delivery 06/04/22 15:54 06/04/22 16:00 06/04/22
[2022-06-05 12:42] LABS: Troponin I < 0.012 ng/mL (0.000-0.034)
[2022-06-05] MEDS: ATORVASTATIN 20 MG TABLET PO (21:09)
[2022-06-05] MEDS: QUEtiapine FUMARATE 100 MG TABLET PO (21:09)
[2022-06-06] VITALS (10 sets, daily range): BP systolic 119–136; BP diastolic 65–96; PULSE 49–70; RESP 14–18; TEMP 35.7–36.6; O2SAT 98–100; BMI 33.3
[2022-06-06] MEDS: APIXABAN 5 MG TABLET PO ×2 (08:06→20:34)
[2022-06-06] MEDS: DIVALPROEX SODIUM DR 250 MG TABEC 750 MG PO ×2 (08:06→20:34)
--- NOTE | 2022-06-06 10:08 | PM.PNCARD ---
Progress Note: A&P Assessment and Plan (1) Near syncope: Code(s): R55 - Syncope and collapse Status: Acute Assessment and Plan: On occasion this hospitalization has documented severe orthostasis no longer appreciated. Check orthostatic vital signs. Hydration is appropriate. 2D echo pending. Neurology following for possible seizure given high risk status post CVA. Antihypertensives held including amlodipine and carvedilol. Telemetry monitoring (2) CVA (cerebral vascular accident): Qualifiers: CVA mechanism: unspecified Qualified Code(s): I63.9 - Cerebral infarction, unspecified Code(s): I63.9 - Cerebral infarction, unspecified Status: Acute Assessment and Plan: Per neurology. Appreciate their input and recommendations. EEG pending. We do not have records to corroborate underlying mechanism for his stroke although he was placed on Eliquis. He has no known documented AFib for flutter nor does patient have personal knowledge of any cardiac problems. He states he needs a washateria attendant but he is not sure why. Sinus rhythm and sinus bradycardia without AFib or flutter thus far on telemetry. Therefore, definitive indication for systemic anticoagulation remains uncertain. No known history of congenital heart disease such as PFO/ASD as alternative justification for systemic anticoagulation. Records will be sent as requested. Further recommendations after review. Will continue Eliquis for the time being, however, it is difficult at this point state with certainty that this remains most appropriate management past until corroborating records are reviewed. (3) Chronic anticoagulation: Code(s): Z79.01 - termination clerk (current) use of anticoagulants Status: Acute Assessment and Plan: As above. Eliquis 5 mg twice daily but indication questionable thus far. (4) HTN (hypertension): Code(s): I10 - Essential (primary) hypertension Status: Acute Assessment and Plan: Documented orthostasis and relative hypotension necessitating discontinuation of systemic anticoagulation. (5) Hyperlipidemia: Code(s): E78.5 - Hyperlipidemia, unspecified Status: Acute Assessment and Plan: Continue atorvastatin goal LDL less than 70 for recurrent CVA risk reduction. Check lipid panel. Adjust atorvastatin as appropriate. Subjective Date/time seen: Date of service: 06/06/22 10:08 Follow-up for near-syncope, history of stroke on anticoagulation Patient states he feels okay. Denies chest pain, palpitations, shortness of breath or fevers. He is awaiting EEG. Echo has not yet been performed. Telemetry reveals sinus bradycardia no pauses, AFib or flutter. He has no other complaints this morning. He now recalls the name of the institution in [facility] where he had a stroke. Records will be sent. Review of Systems Review of Systems: All systems reviewed & are unremarkable except as noted in HPI and below (HPI) Exam Narrative: Apparent distress, expressive aphasia, word searching alert and oriented cooperative, pleasant Const: General: comfortable and no acute distress HENMT: Other: Head atraumatic normocephalic Eyes: Other: No scleral icterus Neck: Neck: no JVD Other: No carotid bruits, supple, normal range of motion Resp: Effort & Inspection: normal respiratory effort Auscultation: clear to auscultation bilaterally Cardio: Rate: regular rate Rhythm: regular rhythm Heart sounds: no murmurs Other: Normal S1-S2 no clicks or rubs. GI: Other: Soft nontender positive bowel sounds throughout nondistended Skin: General skin exam: normal color Neuro: Other: Right upper extremity hemiparesis, expressive aphasia Extrem: General: no edema Other: Extremities warm well perfused Psych: Mental Status: mental status grossly normal Other: Pleasant cooperative mood calm and appropriate Objective Data Vital Signs Vital Signs:
--- NOTE | 2022-06-06 16:45 | PM.IMPN ---
Progress Note: A&P Assessment and Plan (1) Syncope and collapse: Code(s): R55 - Syncope and collapse Status: Acute Assessment and Plan: Concern for possible seizure, Neurology consult pending, follow-up echo and carotid Dopplers as well as EEG Consult cardiology per Neurology recommendations MRI without acute infarct, but encephalomalacia Echo pending (2) Seizure-like activity: Code(s): R56.9 - Unspecified convulsions Status: Acute Assessment and Plan: Continue Depakote, hold off on further antiepileptics, defer to neuro for further management (3) Major depression: Code(s): F32.9 - Major depressive disorder, single episode, unspecified Status: Acute Assessment and Plan: Possible history of bipolar, continue Seroquel (4) CVA (cerebral vascular accident): Qualifiers: CVA mechanism: unspecified Qualified Code(s): I63.9 - Cerebral infarction, unspecified Code(s): I63.9 - Cerebral infarction, unspecified Status: Acute Assessment and Plan: Continue Eliquis (5) HTN (hypertension): Code(s): I10 - Essential (primary) hypertension Status: Acute Assessment and Plan: Hold Coreg for now, low blood pressure, monitor (6) Anxiety: Code(s): F41.9 - Anxiety disorder, unspecified Status: Acute Assessment and Plan: Stable (7) Hyperlipidemia: Code(s): E78.5 - Hyperlipidemia, unspecified Status: Acute Assessment and Plan: Continue with atorvastatin Plan Records pending from [place] when he had his stroke in December 2021, that time he was placed on Eliquis for unknown reason, patient does state he was meant to see a thread machine operator but does not know why. DVT prophylaxis with Eliquis GI prophylaxis not indicated Code status full code Subjective Date/time seen: 06/06/22 16:45 Interval history: Patient states he feels better than when he came in. No overnight events noted. No chest pain or shortness of breath. No nausea, vomiting or diarrhea. No fevers or chills. Review of Systems Review of Systems: 12 point review of systems was assessed and was negative except as noted in the HPI Exam Narrative: General: No acute distress, alert and oriented per baseline HEENT: Atraumatic, normocephalic, mucous membranes moist CV: Regular rate and rhythm, S1, S2 Lungs: Clear to auscultation bilaterally, no rales or crackles noted, no wheezes, good air entry Abdomen: Soft, nontender, nondistended Extremities: Normal to inspection Skin: No rashes noted, no lesions or wounds seen Psych: Euthymic, normal affect, slowed cognition noted Neuro: Cranial nerves 2-12 grossly intact, strength +5/5 upper and lower extremities bilaterally Objective Data Vital Signs Vital Signs: Vital Signs - 24 hr 06/05/22 20:00 06/05/22 20:05 06/05/22 20:10 Temperature 96.9 F L Pulse Rate 59 L 61 68 Respiratory Rate 16 16 16 Blood Pressure 173/74 H 117/73 89/59 L Pulse Oximetry 100 98 100 Oxygen Delivery 06/05/22 22:57 06/05/22 20:00 06/05/22 20:00 Temperature Pulse Rate 73 56 L Respiratory Rate Blood Pressure 116/90 Pulse Oximetry Oxygen Delivery Room Air 06/06/22 00:00 06/06/22 04:00 06/06/22 06:00 Temperature 97.8 F Pulse Rate 49 L 53 L 70 Respiratory Rate 18 Blood Pressure 136/89 Pulse Oximetry 100 Oxygen Delivery 06/06/22 07:58 06/06/22 08:00 06/06/22 08:02 Temperature Pulse Rate Respiratory Rate Blood Pressure 129/81 135/96 H 136/84 Pulse Oximetry Oxygen Delivery 06/06/22 08:00 06/06/22 12:00 06/06/22 14:00 Temperature 97.1 F L Pulse Rate 69 56 L 56 L Respiratory Rate 14 Blood Pressure 119/65 Pulse Oximetry 98 Oxygen Delivery 06/06/22 16:00 Temperature Pulse Rate 50 L Respiratory Rate Blood Pressure Pulse Oximetry Oxygen Delivery Intake/Output Intake/Output: Intake & Output 06/03/22
[2022-06-06] MEDS: ATORVASTATIN 20 MG TABLET PO (20:34)
[2022-06-06] MEDS: QUEtiapine FUMARATE 100 MG TABLET PO (20:34)
[2022-06-07 06:00] VITALS: BP 154/97; PULSE 69; RESP 18; TEMP 35.5; O2SAT 97
[2022-06-07 06:10] LABS: Basophils Absolute Auto 0.1 K/mm3 (0.0-0.1); Basophils Percent Auto 1.2 % (0.2-1.2); Eosinophils Absolute Auto 0.2 K/mm3 (0-0.3); Eosinophils Percent Auto 5.7 % (0-4.4); Hematocrit 38.9 % (42.0-52.0); Hemoglobin 13.2 g/dL (14.0-18.0); Immature Granulocyte Absolute 0.01 K/mm3 (0.00-0.031); Immature Granulocyte Percent A 0.2 % (0-0.5); Lymphocytes Absolute Auto 2.27 K/mm3 (0.9-3.2); Lymphocytes Percent Auto 53.8 % (18.3-44.2); Mean Corpuscular HGB Conc 33.9 g/dl (32-36); Mean Corpuscular Hemoglobin 34.4 pg (26-34); Mean Corpuscular Volume 101.3 fl (80-100); Mean Platelet Volume 13.1 fl (7.4-10.4); Monocytes Absolute Auto 0.4 K/mm3 (0.1-0.6); Neutrophils Absolute Auto 1.2 K/mm3 (1.3-6.7); Neutrophils Percent Auto 29.1 % (45.5-73.1); Red Blood Count 3.84 M/mm3 (4.6-6.20); Red Cell Distribution Width 14.3 % (11.5-14.5); White Blood Count 4.2 K/mm3 (4.5-10.0)
[2022-06-07 06:41] LABS: Alanine Aminotransferase 36 U/L (6-50); Albumin Level 2.8 g/dL (3.5-5.1); Alkaline Phosphatase 60 U/L (38-126); Anion Gap 3 mmol/L (8-16); Aspartate Amino Transferase 35 U/L (17-59); Bilirubin,Total 0.7 mg/dL (0.2-1.3); Blood Urea Nitrogen 16 mg/dL (9-20); Calcium 8.1 mg/dL (8.4-10.2); Carbon Dioxide 29 mmol/L (22-30); Chloride 104 mmol/L (98-107); Estimated CRCL calculation 101 ml/min; Estimated Glomerular Filt Rate > 60; Glucose 81 mg/dL (65-110); Potassium 3.7 mmol/L (3.4-5.0); Sodium 136 mmol/L (137-145)
[2022-06-07 06:55] LABS: Platelet Clumps Present; Platelet Estimate Decreased (Adequate); Schistocytes None Seen (NORMAL)
[2022-06-07 08:00] VITALS: BP 107/71; PULSE 64; RESP 20; TEMP 36.1; O2SAT 98
--- NOTE | 2022-06-07 08:33 | PM.PNCARD ---
Progress Note: A&P Assessment and Plan (1) Near syncope: Code(s): R55 - Syncope and collapse Status: Acute Assessment and Plan: Positive orthostatic vital signs with SBP 173 -->117 -->89 from sitting to standing. Probably the etiology of his syncope. Hydration is appropriate. 2D echo pending did not show any valvular abnormalities, LVSF normal. Neurology following for possible seizure given high risk status post CVA. Antihypertensives held including amlodipine and carvedilol. (2) CVA (cerebral vascular accident): Qualifiers: CVA mechanism: unspecified Qualified Code(s): I63.9 - Cerebral infarction, unspecified Code(s): I63.9 - Cerebral infarction, unspecified Status: Acute Assessment and Plan: Per neurology. Appreciate their input and recommendations. EEG pending. We do not have records to corroborate underlying mechanism for his stroke although he was placed on Eliquis. He tells me he was placed on this for DVT prophylaxis (not on correct dose for this indication) since he is not very mobile. He has no known documented AFib for flutter nor does patient have personal knowledge of any cardiac problems. He states he needs a control operator flow coat but he is not sure why. Sinus rhythm and sinus bradycardia without AFib or flutter thus far on telemetry. Telemetry was discontinued, in regular rhythm on exam. 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 Definitive indication for systemic anticoagulation remains uncertain. No known history of congenital heart disease such as PFO/ASD as alternative justification for systemic anticoagulation. Records have been requested but not yet rec'd. (3) Chronic anticoagulation: Code(s): Z79.01 - ocean transportation intermediary (current) use of anticoagulants Status: Acute Assessment and Plan: As above. Eliquis 5 mg twice daily but indication questionable thus far. (4) HTN (hypertension): Code(s): I10 - Essential (primary) hypertension Status: Acute Assessment and Plan: Documented orthostasis and relative hypotension necessitating discontinuation of systemic anticoagulation. (5) Hyperlipidemia: Code(s): E78.5 - Hyperlipidemia, unspecified Status: Acute Assessment and Plan: Continue atorvastatin goal LDL less than 70 for recurrent CVA risk reduction. Check lipid panel. Adjust atorvastatin as appropriate. Plan Cardiology will sign off. Please do not hesitate to contact us with any questions or concerns. Subjective Date/time seen: 06/07/22 08:33 Cardiology follow up for near syncope Patient feels well today aside from feeling very fatigued. Has not had any syncope or pre-syncope, no chest pain, palpitations, or shortness of breath. Review of Systems Review of Systems: All systems reviewed & are unremarkable except as noted in HPI and below (HPI) Exam Narrative: Apparent distress, expressive aphasia, word searching alert and oriented cooperative, pleasant Const: General: comfortable and no acute distress HENMT: Other: Head atraumatic normocephalic Eyes: Other: No scleral icterus Neck: Neck: no JVD Other: No carotid bruits, supple, normal range of motion Resp: Effort & Inspection: normal respiratory effort Auscultation: clear to auscultation bilaterally Cardio: Rate: regular rate Rhythm: regular rhythm Heart sounds: no murmurs Other: Normal S1-S2 no clicks or rubs. GI: Other: Soft nontender positive bowel sounds throughout nondistended Skin: General skin exam: normal color Neuro: Other: Right upper extremity hemiparesis, expressive aphasia Extrem: General: no edema Other: Extremities warm well perfused Psych: Mental Status: mental status grossly normal Other: Pleasant cooperative mood calm and appropriate Objective Data Vital Signs Vital Signs: Vital Signs - 24 hr 06/06/22 12:00 06/06/22 14:00 06/06/22 16:00 Temperature 36.2 C L Pulse Rate 56 L 56 L 50 L Respi
[2022-06-07] MEDS: APIXABAN 5 MG TABLET PO ×2 (08:55→21:28)
[2022-06-07] MEDS: DIVALPROEX SODIUM DR 250 MG TABEC 750 MG PO ×2 (08:55→21:29)
[2022-06-07] MEDS: ACETAMINOPHEN 325 MG TABLET 650 MG PO ×2 (09:04→21:28)
--- NOTE | 2022-06-07 10:09 | WPDNEUROLOGY ---
Neurology EEG Report General Information Date of Study: 06/06/22
--- NOTE | 2022-06-07 10:58 | WPDNEUROLOGY ---
Neurology EEG Report General Information Date of Study: 06/06/22 TEST eeg DIAGNOSIS History of seizures CONDITION OF RECORDING awake drowsy and sleep EEG NUMBER [id number] CLINICAL HISTORY patient has history of stroke couple of months ago came into hospital couple of days ago for feeling like he was going to pass out. EEG DESCRIPTION Basic resting occipital frequency consists of large amount of well-organized medium voltage 8 to 9 hertz per 2nd alpha admixed with intermittent low to medium voltage 6 to 7 hertz per 2nd theta. Bilateral symmetrical sleep activity seen during sleep. Hyperventilation not done. Photic stimulation not done. Non paroxysmal. Nonfocal. Nonlateralizing. IMPRESSION No significant abnormalities noted
[2022-06-07 14:59] VITALS: BP 111/71; BP 124/79; PULSE 69; PULSE 89; RESP 20; TEMP 36.1; O2SAT 97; O2SAT 98
[2022-06-07 15:19] VITALS: BP 123/80; PULSE 51; RESP 14; TEMP 36.2; O2SAT 97
--- NOTE | 2022-06-07 16:59 | PM.IMPN ---
Progress Note: A&P Assessment and Plan (1) Syncope and collapse: Code(s): R55 - Syncope and collapse Status: Acute Assessment and Plan: Likely secondary to orthostatic hypotension, improving, gentle IV fluid hydration Appreciate cardiology consultation, echo pending Appreciate neurology consultation (2) Seizure-like activity: Code(s): R56.9 - Unspecified convulsions Status: Acute Assessment and Plan: Continue Depakote, hold off on further antiepileptics, defer to neuro for further management (3) Major depression: Code(s): F32.9 - Major depressive disorder, single episode, unspecified Status: Acute Assessment and Plan: Possible history of bipolar, continue Seroquel (4) CVA (cerebral vascular accident): Qualifiers: CVA mechanism: unspecified Qualified Code(s): I63.9 - Cerebral infarction, unspecified Code(s): I63.9 - Cerebral infarction, unspecified Status: Acute Assessment and Plan: Happened in [place] in December 2021, records pending (5) HTN (hypertension): Code(s): I10 - Essential (primary) hypertension Status: Acute Assessment and Plan: Blood pressure improving, can restart Coreg now (6) Anxiety: Code(s): F41.9 - Anxiety disorder, unspecified Status: Acute Assessment and Plan: Stable (7) Hyperlipidemia: Code(s): E78.5 - Hyperlipidemia, unspecified Status: Acute Assessment and Plan: Continue with atorvastatin Plan Records pending from [place] when he had his stroke in December 2021, at that time he was placed on Eliquis for unknown reason, patient does state he was meant to see a chip bin operator but does not know why. Would need to find out why he was placed on Eliquis prior to discharge. DVT prophylaxis with Eliquis GI prophylaxis not indicated Code status full code Subjective Date/time seen: 06/07/22 16:59 Interval history: Patient states he feels very depressed. He feels much better than when he came in, however. He states he no longer feels lightheaded when he stands up. No overnight events noted. No chest pain or shortness of breath. No nausea, vomiting or diarrhea. No fevers or chills. Exam Narrative: General: No acute distress, alert and oriented per baseline HEENT: Atraumatic, normocephalic, mucous membranes moist CV: Regular rate and rhythm, S1, S2 Lungs: Clear to auscultation bilaterally, no rales or crackles noted, no wheezes, good air entry Abdomen: Soft, nontender, nondistended Extremities: Normal to inspection Skin: No rashes noted, no lesions or wounds seen Psych: Euthymic, normal affect, slowed cognition noted Neuro: Cranial nerves 2-12 grossly intact, strength +5/5 upper and lower extremities bilaterally Objective Data Vital Signs Vital Signs: Vital Signs - 24 hr 06/06/22 20:00 06/06/22 22:00 06/07/22 06:00 Temperature 96.3 F L 96 F L Pulse Rate 58 L 69 Respiratory Rate 16 18 Blood Pressure 119/65 154/97 H Pulse Oximetry 98 97 Oxygen Delivery Room Air 06/07/22 08:00 06/07/22 14:59 06/07/22 14:59 Temperature 97.0 F L 97.0 F L 97.0 F L Pulse Rate 64 69 89 Respiratory Rate 20 20 20 Blood Pressure 107/71 124/79 111/71 Pulse Oximetry 98 98 97 Oxygen Delivery 06/07/22 15:19 Temperature 97.2 F L Pulse Rate 51 L Respiratory Rate 14 Blood Pressure 123/80 Pulse Oximetry 97 Oxygen Delivery Intake/Output Intake/Output: Intake & Output 06/04/22 06/05/22 06/06/22 06/07/22 23:59 23:59 23:59 23:59 Intake Total 1460 1740 1370 1640 Output Total 300 400 200 0 Balance 1160 1340 1170 1640 Meds/Results Medications: Active Medications Generic Name Dose Route Start Last Admin Trade Name Ghassanq PRN Reason Stop Dose Admin Acetaminophen 650 mg 06/03/22 16:35 06/07/22 09:04 Acetaminophen 325 Mg Tablet PO 650 mg Q4H PRN Administration Mild Pain (1-3) or Fever Apixaban 5 mg 06/04/22
[2022-06-07] MEDS: SODIUM CHLORIDE 0.9% IV 1,000 ML 125 ML IV CONT (17:29)
[2022-06-07 20:00] VITALS: BP 116/82; PULSE 52; RESP 16; TEMP 36.1; O2SAT 98
[2022-06-07] MEDS: ATORVASTATIN 20 MG TABLET PO (21:28)
[2022-06-07] MEDS: QUEtiapine FUMARATE 100 MG TABLET PO (21:29)
[2022-06-08] MEDS: SODIUM CHLORIDE 0.9% IV 1,000 ML 125 ML IV CONT (03:39)
[2022-06-08 06:01] LABS: Alanine Aminotransferase 33 U/L (6-50); Albumin Level 2.6 g/dL (3.5-5.1); Alkaline Phosphatase 55 U/L (38-126); Anion Gap 8 mmol/L (8-16); Aspartate Amino Transferase 33 U/L (17-59); Bilirubin,Total 0.7 mg/dL (0.2-1.3); Blood Urea Nitrogen 15 mg/dL (9-20); Calcium 7.8 mg/dL (8.4-10.2); Carbon Dioxide 24 mmol/L (22-30); Chloride 107 mmol/L (98-107); Estimated CRCL calculation 101 ml/min; Estimated Glomerular Filt Rate > 60; Glucose 84 mg/dL (65-110); Potassium 3.7 mmol/L (3.4-5.0); Sodium 139 mmol/L (137-145)
[2022-06-08 06:03] LABS: Basophils Percent Auto 0.9 % (0.2-1.2); Eosinophils Absolute Auto 0.3 K/mm3 (0-0.3); Eosinophils Percent Auto 7.9 % (0-4.4); Hematocrit 37.9 % (42.0-52.0); Hemoglobin 12.9 g/dL (14.0-18.0); Immature Platelet Fraction Pct 6.6 % (0.9-11.2); Lymphocytes Absolute Auto 2.46 K/mm3 (0.9-3.2); Lymphocytes Percent Auto 57.2 % (18.3-44.2); Mean Corpuscular Hemoglobin 33.5 pg (26-34); Mean Corpuscular Volume 98.4 fl (80-100); Mean Platelet Volume 11.8 fl (7.4-10.4); Monocytes Absolute Auto 0.4 K/mm3 (0.1-0.6); Monocytes Percent Auto 9.8 % (2.6-8.5); Neutrophils Percent Auto 24.2 % (45.5-73.1); Platelet Count Result 80 k/mm3 (150-375); Red Blood Count 3.85 M/mm3 (4.6-6.20); White Blood Count 4.3 K/mm3 (4.5-10.0)
--- NOTE | 2022-06-08 07:52 | PC.NURSE ---
Pt had complaints of a headache at beginning of shift. Pt was treated with tylenol and then fell asleep. Pt slept through the entire shift. Pt able to ambulate stand by assist to the bathroom. Pt monitored throughout shift.
[2022-06-08] MEDS: DIVALPROEX SODIUM DR 250 MG TABEC 750 MG PO (08:47)
[2022-06-08] MEDS: APIXABAN 5 MG TABLET PO (08:48)
[2022-06-08 11:25] VITALS: BP 116/78; PULSE 54; RESP 18; TEMP 36.4; O2SAT 99
--- NOTE | 2022-06-08 13:31 | PM.DS ---
DS: Admitting Diagnosis Discharge Date June 08, 2022 Admitting Diagnosis orthostatic hypotension DS: Discharge Diagnosis Discharge Diagnosis (1) Syncope and collapse: Code(s): R55 - Syncope and collapse Status: Acute Assessment and Plan: Likely secondary to orthostatic hypotension, improving, gentle IV fluid hydration Appreciate cardiology consultation, echo pending Appreciate neurology consultation (2) Seizure-like activity: Code(s): R56.9 - Unspecified convulsions Status: Acute Assessment and Plan: Continue Depakote, hold off on further antiepileptics, defer to neuro for further management (3) Major depression: Code(s): F32.9 - Major depressive disorder, single episode, unspecified Status: Acute Assessment and Plan: Possible history of bipolar, continue Seroquel (4) CVA (cerebral vascular accident): Qualifiers: CVA mechanism: unspecified Qualified Code(s): I63.9 - Cerebral infarction, unspecified Code(s): I63.9 - Cerebral infarction, unspecified Status: Acute Assessment and Plan: Happened in [place] in December 2021, records pending (5) HTN (hypertension): Code(s): I10 - Essential (primary) hypertension Status: Acute Assessment and Plan: Blood pressure improving, can restart Coreg now (6) Anxiety: Code(s): F41.9 - Anxiety disorder, unspecified Status: Acute Assessment and Plan: Stable (7) Hyperlipidemia: Code(s): E78.5 - Hyperlipidemia, unspecified Status: Acute Assessment and Plan: Continue with atorvastatin Plan Records pending from [place] when he had his stroke in December 2021, at that time he was placed on Eliquis for unknown reason, patient does state he was meant to see a tool crib supervisor but does not know why. Would need to find out why he was placed on Eliquis prior to discharge. DVT prophylaxis with Eliquis GI prophylaxis not indicated Code status full code DS: Summary Hospital Course Hospital Course: patient was admitted for orthostatic hypotension near syncope. He was given IV fluids and his blood pressure is improved. He is up walking around his room and doing his normal activities. He can be discharged Time Spent with Patient Time attestation: Total time spent providing and/or coordinating discharge services: Exam Narrative: General: No acute distress, alert and oriented per baseline HEENT: Atraumatic, normocephalic, mucous membranes moist CV: Regular rate and rhythm, S1, S2 Lungs: Clear to auscultation bilaterally, no rales or crackles noted, no wheezes, good air entry Abdomen: Soft, nontender, nondistended Extremities: Normal to inspection Skin: No rashes noted, no lesions or wounds seen Psych: Euthymic, normal affect, slowed cognition noted Neuro: Cranial nerves 2-12 grossly intact, strength +5/5 upper and lower extremities bilaterally DS: Data Data Completed and Pending Labs on day of discharge: Labs from last 24 hours 06/08/22 06/08/22 05:45 05:45 WBC 4.3 L RBC 3.85 L Hgb 12.9 L Hct 37.9 L MCV 98.4 MCH 33.5 MCHC 34.0 RDW 14.0 Plt Count 80 L MPV 11.8 H Immature Gran % (Auto) 0.0 Neut % (Auto) 24.2 L Lymph % (Auto) 57.2 H [place] % (Auto) 9.8 H Eos % (Auto) 7.9 H Baso % (Auto) 0.9 Lymph # (Auto) 2.46 [place] # (Auto) 0.4 Eos # (Auto) 0.3 Baso # (Auto) 0.0 Abs Immat Gran (auto) 0.00 Absolute Neuts (auto) 1.0 L Absolute Nucleated RBC 0.0 Nucleated RBC % 0.0 % Immature Plt Fraction 6.6 Sodium 139 Potassium 3.7 Chloride 107 Carbon Dioxide 24 Anion Gap 8 BUN 15 Creatinine 0.80 Estim Creat Clear Calc 101 Estimated GFR > 60 Glucose 84 Calcium 7.8 L Total Bilirubin 0.7 AST 33 ALT 33 Alkaline Phosphatase 55 Total Protein 5.0 L Albumin 2.6 L Discharge Plan Discharge Attending physician on discharge: Byron Rodriguez
[2022-06-08 13:34] VITALS: BP 130/84; PULSE 67; O2SAT 100
[2022-06-08 13:35] VITALS: BP 119/76; PULSE 73; O2SAT 100
[2022-06-08 14:00] VITALS: BP 106/93; PULSE 60; RESP 14; TEMP 36.5; O2SAT 98
== END 2022-06-08 15:16 | disposition home or self-care (01) | DRG 204 ==
LOC: ANHED 16:34 → ANH3MEDSUR 17:01
PROVIDERS: Nurse Practitioner; Nurse Practitioner Family; Student in an Organized Health Care Education/Training Program; Admitting Provider Family Medicine; Emergency Provider Emergency Medicine; Visit Provider Chiropractor
DX: I95.1 Orthostatic hypotension (principal); E78.5 Hyperlipidemia, unspecified; I10 Essential (primary) hypertension; G40.909 Epilepsy, unspecified, not intractable, without status epilepticus; F31.9 Bipolar disorder, unspecified; F41.9 Anxiety disorder, unspecified; Z86.73 Personal history of transient ischemic attack (TIA), and cerebral infarction without residual deficits; Z79.01 Long term (current) use of anticoagulants; Z98.84 Bariatric surgery status; Z87.891 Personal history of nicotine dependence; Z23 Encounter for immunization
CPT/HCPCS: 36415; 70450; 70553; 71046; 80053; 80307; 81001; 82728; 83605; 83615; 83735; 84443; 84484; 85025; 85055; 87086; 90471; 90686; 93005; 93880; 95816; 96361; 96365; 99285; A9270; A9577; C8929; G0008; G0378; G0379; J1953; J7030